=== PATIENT | male | born 1980 | race Caucasian/White ===

== ENCOUNTER 2018-04-28 01:02 | Emergency (ER) | payer SELFPAY ==
[2018-04-28] MEDS ORDERED: Succinylcholine* 20 MG/ML 10 ML VIAL ONE (01:08)
[2018-04-28] MEDS ORDERED: Propofol* 200 ML ONE (01:09)
[2018-04-28] MEDS ORDERED: Tranexamic Acid 1,000 MG/10 ML SDV IV ONE ×2 (01:17→01:24)
[2018-04-28] MEDS ORDERED: Tranexamic Acid 1,000 MG/10 ML 1,000 MG in NS 0.9% 100 ML* 100 ML IV ONE ×2 (01:27→01:32)
[2018-04-28] MEDS ORDERED: NS 0.9% 1000 ML* 1,000 ML IV ONE (01:29)
[2018-04-28] MEDS ORDERED: Propofol* 10 MG/ML 20 ML BTL IV PUSH ONE (01:32)
[2018-04-28] MEDS ORDERED: Succinylcholine* 20 MG/ML 10 ML VIAL IV ONE (01:32)
[2018-04-28] MEDS ORDERED: Propofol* 500 MG/50 ML BTL IV SCH (02:00)
[2018-04-28 02:10] LABS: Hematocrit 53 % (42-52); Mean Corpuscular HGB Conc 34 g/dl (31-36); Mean Corpuscular Hemoglobin 31 pg (27-31); Mean Corpuscular Volume 92 fL (80-94); Platelet Count 298 10^3/ul (150-450); Red Blood Count 5.77 10^6/ul (4.00-5.40); Red Cell Distribution Width 14 % (10.5-15); White Blood Count 19.3 10^3/ul (3.5-10.8)
[2018-04-28] MEDS ORDERED: VECURONIUM BROMIDE 10 MG INJ IV ONE (02:10)
[2018-04-28 02:16] LABS: Urine Appearance Cloudy; Urine Blood 3+ (Negative); Urine Color Amber; Urine Ketones Negative (Negative); Urine Protein 3+(>=500 mg/dL) (Negative); Urine Specific Gravity 1.019 (1.010-1.030); Urine Urobilinogen Negative (Negative)
[2018-04-28 02:18] LABS: INR 1.01 (0.77-1.02)
[2018-04-28 02:31] LABS: EGFR Non-African American 49.1 (>60)
[2018-04-28 02:45] LABS: Monocytes % 1 % (0-7)
[2018-04-28] MEDS ORDERED: Cisatracurium* 100 MG in NS 0.9% 250 ML* 200 ML IVPB SCH ×4 (03:00)
--- NOTE | 2018-04-28 03:16 | ED ---
Koko Lorenzo Tiffany, scribed for Jim Felton MD on 04/28/18 at 0144 . Substance Abuse/Use - HPI Summary HPI Summary: 37 year old M BIB[facility] to [facility] with complaint of possible overdose. EMS delivers HPI as patient is unable to provide history due to altered mental status. Patient allegedly showed up uninvited at coworker's house, fell on stairs, hitting his nose and mouth. On scene, EMS administered Narcan without effect. According to friends the patient is a known opiate user. Patient was found to be diaphoretic, began hyperventilating per EMS. Patient is a known drug user and has fresh track rose per EMS. EMS report that he has been hypoventilatory , with very high blood pressure and with gasping respirations throughout transport. On arrival the patient is comatose and unable to provide any history. He is critically ill. LEVEL 5 CAVEAT: HPI is limited because patient is unresponsive secondary to substance overdose - History Of Current Complaint Stated Complaint: OVERDOSE Time Seen by Provider: 04/28/18 01:29 Hx Obtained From: EMS Aggravating Factor(s): Nothing Alleviating Factor(s): Nothing - Allergies/Home Medications Allergies/Adverse Reactions: Allergies Allergy/AdvReac Type Severity Reaction Status Date / Time Unable to Assess Allergy Verified 04/28/18 01:59 PMH/Surg Hx/FS Hx/Imm Hx Previously Healthy: No - LEVEL 5 CAV: PMHx is limited b/c pt is unresponsive secondary to OD Psychiatric History: Reports: Hx Substance Abuse - Surgical History Surgery Procedure, Year, and Place: LEVEL 5 CAV: surgical hx is limited because patient is unresponsive secondary to substance overdose Infectious Disease History: Denies: Traveled Outside the [place] in Last 30 Days - Family History Known Family History: Positive: Other - LEV 5 CAV: limited b/c pt is unresponsive secondary to substance OD - Social History Hx Substance Use: Yes Smoking Status (MU): Unknown if Ever Smoked Review of Systems Positive: Skin Diaphoresis Positive: Other - hyperventilating Positive: Other - facial trauma Positive: Other - substance overdose All Other Systems Reviewed And Are Negative: No - Comments Additional Review of Systems Comments: Review of systems is unobtainable due to comatose patient Physical Exam - Summary Physical Exam Summary: Appearance: there is blood and vomit all over his body. occasional decorticate posturing. he is gasping Skin: patient is diaphoretic. He has track rose on left AC. Head/face: facial trauma, he is bleeding from his nose and mouth Eyes: pupils are dilated ENT: normal Neck: supple, non-tender Respiratory: tachypneic, grunting respiration. bilateral breath sounds are present but they are coarse. upon airway exam, there is blood in nose and mouth Cardiovascular: tachycardic Abdomen: non-tender, soft Bowel Sounds: present Musculoskeletal: No obvious musculoskeletal injury Neuro: Altered mental status with withdrawal from pain only. Did attempt to sit up once on his own. GCS of 6 Triage Information Reviewed: Yes Vital Signs On Initial Exam: Initial Vitals Temp Pulse Resp BP Pulse Ox 0 F 129 53 0/0 66 04/28/18 01:02 04/28/18 01:02 04/28/18 01:02 04/28/18 01:02 04/28/18 01:02 Vital Signs Reviewed: Yes Appearance: Positive: Ill-Appearing - Blood about the face, significant respiratory distress. Initially with almost decorticate appearing movements however this progressed into localization of pain. Procedures - Intubation Time of Intubation: 01:00 Intubation Method: orotracheal - GlideScope #3. Significant blood noted bubbling from the cords. Tube Size (cm): 8.0 Medications: Succinylcholine - and Propofol. Breath Sounds after Intubation: equal Intubation Complications: no complications Post Intubation Xray: Yes - alveolar hemorrhage, ETT in place Progress/Xray Impression: ETT approp. Pulm hemorrhage. OG tube placed. Diagnostics - Vital Signs Vital Signs Temp Pulse Resp BP Pulse Ox 04/28/18 02:40 100.0 F 127 105/80 86 04/28/18 02:37 100.0 F 129 108/79 87 04/28/18 02:35 99.9 F 132 101/72 87 04/28/18 02:33 99.9 F 132 89/74 85 04/28/18 02:30 99.7 F 130 111/83 82 04/28/18 02:27 99.7 F 136 114/73 83 04/28/18 02:25 99.5 F 136 111/78 82 04/28/18 02:24 99.5 F 138 104/77 82 04/28/18 02:07 98.8 F 140 95/78 80 04/28/18 02:05 98.8 F 114/83 04/28/18 02:03 98.6 F 130 117/56 04/28/18 02:01 98.4 F 133 86 04/28/18 02:00 98.2 F 130 139/80 86 04/28/18 01:58 96.1 F 135 123/73 82 04/28/18 01:31 95.7 F 126 108/71 79 04/28/18 01:29 94.8 F 125 91/67 76 04/28/18 01:27 94.3 F 120 91/67 78 04/28/18 01:24 90.9 F 111 126/72 80 04/28/18 01:21 107 130/73 79 04/28/18 01:15 110 142/82 70 04/28/18 01:12 75 149/67 62 04/28/18 01:08 116 62 04/28/18 01:07 110 149/67 56 04/28/18 01:02 0 F 129 53 0/0 66 - Laboratory Lab Results: Lab Results 04/28/18 04/28/18 04/28/18 Range/Units 02:00 02:00 02:00 WBC 19.3 H (3.5-10.8) 10^3/ul RBC 5.77 H (4.00-5.40) 10^6/ul Hgb 18.0 (14.0-18.0) g/dl Hct 53 H (42-52) % MCV 92 (80-94) fL MCH 31 (27-31) pg MCHC 34 (31-36) g/dl RDW 14 (10.5-15) % Plt Count 298 (150-450) 10^3/ul MPV 8.0 (7.4-10.4) um3 Neut % (Auto) Not Reportable Lymph % (Auto) Not Reportable [place] % (Auto) Not Reportable Eos % (Auto) Not Reportable Baso % (Auto) Not Reportable Absolute Neuts (auto) 13.0 H (1.5-7.7) 10^3/ul Absolute Lymphs (auto) Not Reportable Absolute Monos (auto) Not Reportable Absolute Eos (auto) Not Reportable Absolute Basos (auto) Not Reportable Absolute Nucleated RBC Not Reportable Immature Gran % 8 (0-9) % Neutrophils % 54 (38-83) % Band Neutrophils % 7 (0-8) % Lymphocytes % 30 (25-47) % Reactive Lymphs % 7 H (0-6) % Monocytes % 1 (0-7) % Eosinophils % 0 (0-6) % Basophils % 0 (0-2) % Metamyelocytes % 1 (0-2) % Nucleated RBC % Not Reportable Abs Neuts (Manual) 10.4 H (1.5-7.7) 10^3/ul Abs Lymphs (Manual) 5.8 H (1.0-4.8) 10^3/ul Abs Monocytes (Manual) 0.2 (0-0.8) 10^3/ul Absolute Eos (Manual) 0 (0-0.6) 10^3/ul Abs Basophils (Manual) 0 (0-0.2) 10^3/ul Normal RBC Morphology Normal (Normal) Hem Pathologist Commnt Pending INR (Anticoag Therapy) 1.01 (0.77-1.02) APTT 28.6 (26.0-36.3) seconds Patient Temperature ABG pH (7.35-7.45) ABG pH (Temp Correct) ABG pCO2 (35-45) mmHg ABG pCO2 (Temp Corrct ABG pO2 (80-100) mmHg ABG pO2 (Temp Correct ABG HCO3 (19-31) mmol/L ABG O2 Saturation (95-98) % ABG Base Excess (-2.0-2.0) Respiration Rate O2 Delivery Device Ventilator Type Vent Mode FiO2 Inspiratory Time PEEP Pressure Support Pressure Control EPAP IPAP BiPAP Sodium (135-145) mmol/L Potassium Chloride (101-111) mmol/L Carbon Dioxide (22-32) mmol/L Anion Gap (2-11) mmol/L BUN (6-24) mg/dL Creatinine (0.67-1.17) mg/dL Est GFR ( Amer) (>60) Est GFR (Non-Af Amer) (>60) BUN/Creatinine Ratio (8-20) Glucose (70-100) mg/dL Lactic Acid (0.5-2.0) mmol/L Calcium (8.6-10.3) mg/dL Total Bilirubin (0.2-1.0) mg/dL AST ALT (7-52) U/L Alkaline Phosphatase (34-104) U/L Troponin I (<0.04) ng/mL Total Protein (6.4-8.9) g/dL Albumin (3.2-5.2) g/dL Globulin (2-4) g/dL Albumin/Globulin Ratio (1-3) Urine Color Jada Urine Appearance Cloudy Urine pH 5.0 (5-9) Ur Specific [place] 1.019 (1.010-1.030) Urine Protein 3+(>=500 mg/dl) A (Negative) Urine Ketones Negative (Negative) Urine Blood 3+ A (Negative) Urine Nitrate Negative (Negative) Urine Bilirubin Negative (Negative) Urine Urobilinogen Negative (Negative) Ur Leukocyte Esterase Negative (Negative) Urine WBC (Auto) Trace(0-5/hpf) (Absent) Urine RBC (Auto) 3+(>10/hpf) A (Absent) Ur Squamous Epith Cells Present A (Absent) Ur Transition Epith Cell Present A (Absent) Urine Bacteria Absent (Absent) Hyaline Casts Present A (Absent) Urine Glucose 1+(50 mg/dl) A (Negative) Urine Ascorbic Acid * A (Negative) Urine Opiates Screen (None Detect) Ur Barbiturates Screen (None Detect) Ur Phencyclidine Scrn (None Detect) Ur Amphetamines Screen (None Detect) U Benzodiazepines Scrn (None Detect) Urine Cocaine Screen (None Detect) U Cannabinoids Screen (None Detect) 04/28/18 04/28/18 04/28/18 Range/Units 02:00 02:00 02:00 WBC (3.5-10.8) 10^3/ul RBC (4.00-5.40) 10^6/ul Hgb (14.0-18.0) g/dl Hct (42-52) % MCV (80-94) fL MCH (27-31) pg MCHC (31-36) g/dl RDW (10.5-15) % Plt Count (150-450) 10^3/ul MPV (7.4-10.4) um3 Neut % (Auto) Lymph % (Auto) [place] % (Auto) Eos % (Auto) Baso % (Auto) Absolute Neuts (auto) (1.5-7.7) 10^3/ul Absolute Lymphs (auto) Absolute Monos (auto) Absolute Eos (auto) Absolute Basos (auto) Absolute Nucleated RBC Immature Gran % (0-9) % Neutrophils % (38-83) % Band Neutrophils % (0-8) % Lymphocytes % (25-47) % Reactive Lymphs % (0-6) % Monocytes % (0-7) % Eosinophils % (0-6) % Basophils % (0-2) % Metamyelocytes % (0-2) % Nucleated RBC % Abs Neuts (Manual) (1.5-7.7) 10^3/ul Abs Lymphs (Manual) (1.0-4.8) 10^3/ul Abs Monocytes (Manual) (0-0.8) 10^3/ul Absolute Eos (Manual) (0-0.6) 10^3/ul Abs Basophils (Manual) (0-0.2) 10^3/ul Normal RBC Morphology (Normal) Hem Pathologist Commnt INR (Anticoag Therapy) (0.77-1.02) APTT (26.0-36.3) seconds Patient Temperature ABG pH (7.35-7.45) ABG pH (Temp Correct) ABG pCO2 (35-45) mmHg ABG pCO2 (Temp Corrct ABG pO2 (80-100) mmHg ABG pO2 (Temp Correct ABG HCO3 (19-31) mmol/L ABG O2 Saturation (95-98) % ABG Base Excess (-2.0-2.0) Respiration Rate O2 Delivery Device Ventilator Type Vent Mode FiO2 Inspiratory Time PEEP Pressure Support Pressure Control EPAP IPAP BiPAP Sodium 137 (135-145) mmol/L Potassium TNP Chloride 99 L (101-111) mmol/L Carbon Dioxide 27 (22-32) mmol/L Anion Gap 11 (2-11) mmol/L BUN 16 (6-24) mg/dL Creatinine 1.61 H (0.67-1.17) mg/dL Est GFR ( Amer) 59.4 (>60) Est GFR (Non-Af Amer) 49.1 (>60) BUN/Creatinine Ratio 9.9 (8-20) Glucose 192 H (70-100) mg/dL Lactic Acid 3.9 H* (0.5-2.0) mmol/L Calcium 9.2 (8.6-10.3) mg/dL Total Bilirubin 0.60 (0.2-1.0) mg/dL AST TNP ALT 34 (7-52) U/L Alkaline Phosphatase 62 (34-104) U/L Troponin I 0.36 H* (<0.04) ng/mL Total Protein 6.5 (6.4-8.9) g/dL Albumin 4.1 (3.2-5.2) g/dL Globulin 2.4 (2-4) g/dL Albumin/Globulin Ratio 1.7 (1-3) Urine Color Urine Appearance Urine pH (5-9) Ur Specific [place] (1.010-1.030) Urine Protein (Negative) Urine Ketones (Negative) Urine Blood (Negative) Urine Nitrate (Negative) Urine Bilirubin (Negative) Urine Urobilinogen (Negative) Ur Leukocyte Esterase (Negative) Urine WBC (Auto) (Absent) Urine RBC (Auto) (Absent) Ur Squamous Epith Cells (Absent) Ur Transition Epith Cell (Absent) Urine Bacteria (Absent) Hyaline Casts (Absent) Urine Glucose (Negative) Urine Ascorbic Acid (Negative) Urine Opiates Screen Presumptive positive A (None Detect) Ur Barbiturates Screen None detected (None Detect) Ur Phencyclidine Scrn None detected (None Detect) Ur Amphetamines Screen None detected (None Detect) U Benzodiazepines Scrn Presumptive positive A (None Detect) Urine Cocaine Screen None detected (None Detect) U Cannabinoids Screen None detected (None Detect) 04/28/18 Range/Units 02:20 WBC (3.5-10.8) 10^3/ul RBC (4.00-5.40) 10^6/ul Hgb (14.0-18.0) g/dl Hct (42-52) % MCV (80-94) fL MCH (27-31) pg MCHC (31-36) g/dl RDW (10.5-15) % Plt Count (150-450) 10^3/ul MPV (7.4-10.4) um3 Neut % (Auto) Lymph % (Auto) [place] % (Auto) Eos % (Auto) Baso % (Auto) Absolute Neuts (auto) (1.5-7.7) 10^3/ul Absolute Lymphs (auto) Absolute Monos (auto) Absolute Eos (auto) Absolute Basos (auto) Absolute Nucleated RBC Immature Gran % (0-9) % Neutrophils % (38-83) % Band Neutrophils % (0-8) % Lymphocytes % (25-47) % Reactive Lymphs % (0-6) % Monocytes % (0-7) % Eosinophils % (0-6) % Basophils % (0-2) % Metamyelocytes % (0-2) % Nucleated RBC % Abs Neuts (Manual) (1.5-7.7) 10^3/ul Abs Lymphs (Manual) (1.0-4.8) 10^3/ul Abs Monocytes (Manual) (0-0.8) 10^3/ul Absolute Eos (Manual) (0-0.6) 10^3/ul Abs Basophils (Manual) (0-0.2) 10^3/ul Normal RBC Morphology (Normal) Hem Pathologist Commnt INR (Anticoag Therapy) (0.77-1.02) APTT (26.0-36.3) seconds Patient Temperature Not Reportable ABG pH 7.25 L (7.35-7.45) ABG pH (Temp Correct) Not Reportable ABG pCO2 55 H (35-45) mmHg ABG pCO2 (Temp Corrct Not Reportable ABG pO2 53 L* (80-100) mmHg ABG pO2 (Temp Correct Not Reportable ABG HCO3 21.0 (19-31) mmol/L ABG O2 Saturation 86.3 L (95-98) % ABG Base Excess -4.3 L (-2.0-2.0) Respiration Rate 20 O2 Delivery Device vent Ventilator Type Not Reportable Vent Mode pcv FiO2 100 Inspiratory Time 1.0 PEEP 15 Pressure Support Not Reportable Pressure Control 25 EPAP Not Reportable IPAP Not Reportable BiPAP Not Reportable Sodium (135-145) mmol/L Potassium Chloride (101-111) mmol/L Carbon Dioxide (22-32) mmol/L Anion Gap (2-11) mmol/L BUN (6-24) mg/dL Creatinine (0.67-1.17) mg/dL Est GFR ( Amer) (>60) Est GFR (Non-Af Amer) (>60) BUN/Creatinine Ratio (8-20) Glucose (70-100) mg/dL Lactic Acid (0.5-2.0) mmol/L Calcium (8.6-10.3) mg/dL Total Bilirubin (0.2-1.0) mg/dL AST ALT (7-52) U/L Alkaline Phosphatase (34-104) U/L Troponin I (<0.04) ng/mL Total Protein (6.4-8.9) g/dL Albumin (3.2-5.2) g/dL Globulin (2-4) g/dL Albumin/Globulin Ratio (1-3) Urine Color Urine Appearance Urine pH (5-9) Ur Specific [place] (1.010-1.030) Urine Protein (Negative) Urine Ketones (Negative) Urine Blood (Negative) Urine Nitrate (Negative) Urine Bilirubin (Negative) Urine Urobilinogen (Negative) Ur Leukocyte Esterase (Negative) Urine WBC (Auto) (Absent) Urine RBC (Auto) (Absent) Ur Squamous Epith Cells (Absent) Ur Transition Epith Cell (Absent) Urine Bacteria (Absent) Hyaline Casts (Absent) Urine Glucose (Negative) Urine Ascorbic Acid (Negative) Urine Opiates Screen (None Detect) Ur Barbiturates Screen (None Detect) Ur Phencyclidine Scrn (None Detect) Ur Amphetamines Screen (None Detect) U Benzodiazepines Scrn (None Detect) Urine Cocaine Screen (None Detect) U Cannabinoids Screen (None Detect) Result Diagrams: 04/28/18 02:00 04/28/18 02:00 Lab Statement: Any lab studies that have been ordered have been reviewed, and results considered in the medical decision making process. - Radiology CXR Radiology Interpretation Completed By: ED Physician - Diffuse alveolar hemorrhage. The endotracheal tube and OG tube are appropriately placed. Pending official report. - EKG 0159 Cardiac Rate: Tachycardia - 136 BPM EKG Rhythm: Sinus Tachycardia EKG Interpretation: Poor R wave progression. Nonspecific ST. Re-Evaluation - Re-Evaluation First Eval Change: Improved Course/Dx - Course Course Of Treatment: Patient presents critically ill with blood about the head and face area there is no trauma that was able to be identified. The patient was put in a collar pending CT of the neck. On intubation a lot of blood was seen bubbling from the vocal cords. We suctioned out copious amounts of blood following intubation. Given this as the likely site of blood on the face patient was given a bolus of tranexamic acid followed by a drip. He did not get good volumes on volume control ventilation and so he was switched to pressure control. Pressures were high with peak pressures of 31. O2 sats were mostly in the 70s during resuscitation with a yareli of 55. Following stabilization the best O2 sat we can get following multiple episodes of suctioning and titrating of ventilatory support was 81. He was then moved to CT where head and neck CTs were performed. There are no acute findings on the brain CT by my preliminary reading. Transfer arrangements were then made. The patient was given vecuronium bolus given he was dyssynchronous from the ventilator. We're able to speak with eICU attending at [facility] who accepted the patient for transfer. He would like the patient placed on a cisatracurium drip. Transport arrangements will be made. Also, we're able to get a hold the patient's mother -- she reports the patient has been using OxyContin lately and that he has a drug history. She reports that he was due to go to rehabilitation in the morning. Following multiple efforts at pulmonary toilet the patient was able to be titrated to pressure control of 23 with 15 of PEEP at 100% with an O2 sat of 90%. Most likely this appears to be a result of drug ingestion. He possibly could have huffed or snorted a substance causing toxic effect to the lung. He was positive for benzos and opiates. There is no residue of any substance on his face or inside the nose or mouth. His hemorrhage seems to have stopped following the tranexamic acid. His initial ABG showed a PO2 of 53 on 100% FiO2. - Diagnoses Differential Diagnosis/HQI/PQRI: Positive: Other - Trauma, drug effect, infectious etiology Provider Diagnoses: Diffuse pulmonary alveolar hemorrhage, Hypoxemia, Opiate addiction - Physician Notifications Discussed Care Of Patient With: Dr. Maguire - ICU attending at [facility] accepts the patient for transfer. Reason For Transfer: Specialty or service not available [place] [facility] Patient may require ECMO and advance ventilatory support - Critical Care Time Critical Care Time: 75-104 min - Critical care time is exclusive of separately billable procedures Discharge - Sign-Out/Discharge Documenting (check all that apply): Discharge/Admit/Transfer - Discharge Plan Condition: Critical Disposition: TRANS HIGHER LVL OF CARE FAC Referrals: No Primary Care Phys,NOPCP [Primary Care Provider] - - Billing Disposition and Condition Condition: CRITICAL Disposition: Trans Higher Lvl of Care Fac The documentation as recorded by the Koko galicia Tiffany accurately reflects the service I personally performed and the decisions made by , Jim Felton MD.
[2018-04-28] MEDS ORDERED: NS 0.9% 250 ML* 250 ML ONE (03:32)
[2018-04-28] MEDS ORDERED: Acetaminophen SUPP* 650 MG SUPP PR ONE (03:36)
[2018-04-28 04:52] VITALS: BP 93/56
--- NOTE | 2018-04-28 07:45 | RAD ---
INDICATION: Change in mental status COMPARISON: None TECHNIQUE: Noncontrast axial source images were acquired from the skull base to the vertex. Examination is mildly limited due to motion artifact FINDINGS: Ventricles/sulci: The ventricles and cisterns are normal in size and configuration for age. Brain parenchyma: There is no focal parenchymal finding, evidence of intracranial mass, or intracranial mass effect. Intracranial hemorrhage:None. Extra-axial spaces: There are no abnormal extra axial fluid collections or evidence of extra-axial mass. Calvarium: There is no calvarial fracture or other calvarial abnormality. Scalp: There is no evidence of scalp or extracalvarial soft tissue abnormality. Paranasal sinuses/mastoid: The paranasal sinuses and mastoid air cells are clear. Other: None. IMPRESSION: Mildly Limited examination. No acute intracranial findings
--- NOTE | 2018-04-28 07:45 | RAD ---
Indication: Respiratory failure. Single frontal view of the chest performed at 0125 hours was reviewed. No prior study is noted.. No mediastinal shift is noted. Heart is of normal size and configuration. Bilateral alveolar infiltrates are noted. ET tube is at the level T4. Nasogastric tube is in the distal esophagus. Dilated stomach is noted. IMPRESSION: BILATERAL ALVEOLAR INFILTRATES CONSISTENT WITH BILATERAL PNEUMONIA OR NONCARDIOGENIC PULMONARY EDEMA. ET TUBE IS AT THE LEVEL OF T4. NASOGASTRIC TUBE TIP IS IN THE DISTAL ESOPHAGUS.
--- NOTE | 2018-04-28 07:50 | RAD ---
INDICATION: Possible neck injury INDICATION: None COMPARISON: Chest x-ray same date TECHNIQUE: Noncontrast axial source images was performed from the skull base to the thoracic inlet. Coronal and and sagittal reformatted images were generated. There are moderate limitations due to motion artifact. FINDINGS: Vertebrae: There is no acute fracture. There is significant motion artifact. Moderate to advanced osteoarthritic change is present from C5 through C7 with disc space narrowing, endplate cirrhosis, anterior bony spur formation, and uncinate process spurring. There is multilevel bilateral foraminal narrowing. Alignment: The craniocervical junction appears normal. There is mild reversal normal cervical lordosis. Central Canal: As above there is bilateral foraminal narrowing. There is mild posterior spondylitic ridge reformation with no significant canal stenosis. MR imaging is a more sensitive method to evaluate the canal and foramina. Intervertebral disc spaces: The remaining disc spaces are maintained. Brain: The visualized brain appears unremarkable. Soft tissues: The visualized soft tissue elements of the neck are unremarkable. The prevertebral soft tissues appear normal. There are extensive upper lobe infiltrates as identified on the chest x-ray. There is an endotracheal tube in satisfactory position. IMPRESSION: 1. Within the limits of this examination no acute bony abnormalities are seen. 2. Moderate osteoarthritis C5-C7. 3. Extensive bilateral infiltrates. 4. Endotracheal tube in proper position
== END 2018-04-28 04:53 | disposition short-term general hospital (02) ==
LOC: MERGE 01:02 → ED 01:02
DX: R04.89 Hemorrhage from other sites in respiratory passages (principal); R06.4 Hyperventilation; R09.02 Hypoxemia; F11.20 Opioid dependence, uncomplicated
CPT/HCPCS: 31500; 36415; 70450; 71045; 72125; 80053; 80307; 81003; 81015; 82803; 83605; 84484; 85025; 85060; 85610; 85730; 87086; 93005; 96374; 99285; A9270-GY; J0330; J2704